=== PATIENT | female | born 1940 | race Caucasian/White ===

== ENCOUNTER 2016-02-18 03:11 | Inpatient (IN) | payer OTHER ==
[~2016-02-18] VITALS: Ht 162.6 cm; Wt 98.0 kg
[2016-02-18] VITALS (27 sets, daily range): BP systolic 113–163; BP diastolic 48–84
--- NOTE | ~2016-02-18 | PR ---
[place], [place] PROGRESS NOTE NAME: RENÉE BOO UNIT #: [id number] ROOM: [facility] DOCTOR: RUDI GA MD BIRTHDATE: [birth year] DOS: 02/24/2016 CARDIOLOGY PROGRESS NOTE SUBJECTIVE: The patient was seen at her bedside in the intensive care unit today 02/24/2016. She remains sedated and intubated on the ventilator. She appears to be comfortable. Once again, her heart rate remains about 60. She is on low dose dobutamine to support the heart rate. PHYSICAL EXAMINATION: VITAL SIGNS: Her pulse is 62 and regular, blood pressure is 126/50. She is afebrile. Pulse oximetry is 97% saturated. NECK: Supple. I saw no jugular distention. Carotids are full. LUNGS: Respirations are per ventilator. She has decreased breath sounds at the bases. HEART: Has a regular rhythm with a fourth heart sound, but no third heart sound. There is grade 2/6 systolic ejection murmur along the left sternal border, but no diastolic murmurs. ABDOMEN: Soft and normally active. EXTREMITIES: Showed trace to 1+ edema. IMPRESSIONS: 1. Acute respiratory failure superimposed on chronic respiratory insufficiency. 2. Hypertension. 3. Diastolic heart failure. 4. Pneumonia, which triggered her acute respiratory decompensation. 5. Probable severe protein calorie malnutrition. 6. Dementia. 7. Bradycardia, which is responding to low dose dobutamine. PLAN: We will continue supportive care. Hopefully, we will be able wean her off of her dobutamine when her food service hotel runner is able to wean her off the ventilator. We thank the hospitalist group for asking our advice regarding her care. [place], [place] PROGRESS NOTE NAME: RENÉE BOO UNIT #: [id number] ROOM: [facility] DOCTOR: RUDI GA MD BIRTHDATE: [birth year] RUDI GA MD CM:PNTRANS [phone] [id number] RUDI GA MD 02/24/162009 interface
--- NOTE | ~2016-02-18 | PR ---
[place], [place] PROGRESS NOTE NAME: [id number] UNIT #: [id number] ROOM: [facility] DOCTOR: RUDI GA MD BIRTHDATE: [birth year] DOS: 02/22/2016 CARDIOLOGY PROGRESS NOTE SUBJECTIVE: The patient was seen at her bedside in the Intensive Care Unit today 02/22/2016 for followup of bradycardia. HISTORY: The patient is a 75-year-old resident of the [facility]. She has a long history of chronic respiratory failure with essential hypertension, diastolic heart failure, hypothyroidism, and dementia. According to records available, she was found to be short of breath at the detention and was severely hypoxemic. She was initially placed on BiPAP but did not improve and therefore has been intubated. She is currently sedated and appears to be comfortable. She is being treated for sepsis and pneumonia. The patient did develop significant bradycardia while being sedated and on the ventilator. We were asked to comment on management strategies. I did place her on a low dose of dobutamine, and her heart rate has been adequate with that therapy. The patient remains intubated. She does appear comfortable on the ventilator. Vital signs are otherwise stable, and she is on a minimal dose of dobutamine at 1 mcg/kg/min. PHYSICAL EXAMINATION: VITAL SIGNS: Her pulse is 70 and regular with an occasional premature beat. Blood pressure is 152/62. She is afebrile. She weighs 98.0 kg. HEENT: Normocephalic, atraumatic. Extraocular muscles are intact. Sclerae are clear. Pupils are round and react to light. The oral mucosa is moist. Tongue is midline. NECK: Supple. I saw no jugular distention. Carotids are full. LUNGS: Respirations are per ventilator. She has decreased breath sounds at the bases, but her lungs are fairly clear otherwise. HEART: Has a regular rhythm with an S4 gallop, but no S3. She has a grade 2/6 systolic ejection murmur along the left sternal border radiating toward the base, but no diastolic murmurs are present. EXTREMITIES: Showed no edema. Peripheral pulses were absent. LABORATORY DATA: Hemoglobin is 9.8, hematocrit 32, white count 4700, platelet count 154,000. INR is 1.8. Sodium is 146, potassium 3.5, BUN 11, and creatinine 0.8. TSH is normal at 0.704. IMPRESSION: 1. Acute respiratory failure superimposed on chronic respiratory insufficiency. 2. History of hypertension. 3. History of chronic diastolic heart failure. 4. Pneumonia, which resulted in acute respiratory failure. 5. History of hypothyroidism, on replacement. 6. Essential hypertension. 7. Dementia. [place], [place] PROGRESS NOTE NAME: RENÉE BOO UNIT #: [id number] ROOM: [facility] DOCTOR: RUDI GA MD BIRTHDATE: [birth year] 8. Bradycardia, probably due to sedation, propofol use, etc. The patient is not on any heart rate slowing medications. PLAN: We will continue to use low doses of dobutamine as needed to support her heart rate until she can be weaned from the ventilator and breathing on her own without sedation. We thank the hospitalist physicians for asking our advice regarding her care. RUDI GA MD CM:PNTRANS [id number] RUDI GA MD 02/23/16 0922 interface
--- NOTE | ~2016-02-18 | PR ---
[place], [place] PROGRESS NOTE NAME: RENÉE BOO UNIT #: [id number] ROOM: [facility] DOCTOR: SUSAN HOUSE MD,CHICO BIRTHDATE: [birth year] DOS: 02/25/2016 SUBJECTIVE: She remains on mechanical ventilator. Sedation has been continued with IV Diprivan. The reduction of the Diprivan for the patient resulted in some improvement in wakefulness after some time. Currently, the patient is getting Diprivan at 35 mcg per kilogram per minute. She has been noted without any hemodynamic instability. Diuretic therapy for the patient has been continued with reduction of the Lasix was done yesterday because of massive diuresis which was noted in this patient. The electrolyte supplementation was continued as well. She has not been requiring any vasopressor therapy. OBJECTIVE: VITAL SIGNS: For the patient which has been recorded shows the temperature was normal, respiratory rate 12, heart rate 67, blood pressure 101/50-98/46. Intake for the patient was recorded at 2900 mL, output was 5000 mL, was negative for approximately 2000 mL. The pulse oxygen saturation on assist control mode of mechanical ventilation with 30% was 97% saturation recorded. HEENT: Examination shows head was atraumatic. Eyes nonicterus. The patient remains orally intubated. NECK: The patient noted without any acute changes. CARDIOVASCULAR: S1, S2 is audible. LUNGS: Noted without any crackles, rhonchi, or wheezing. The breath sounds noted mildly decreased bilaterally. ABDOMEN: Soft, nontender. LABORATORY DATA: CBC today, hemoglobin 9.7, hematocrit 31.2, WBC count were normal, platelet count 177,000. CMP of the patient this morning, BUN 29, creatinine 1.04, glucose 163, sodium 148, potassium was normal. AST 77, ALT 116. The chest x-ray of the patient that was done this morning was noted, the endotracheal tube was noted in appropriate position. There were no acute cardiopulmonary findings were noted. IMPRESSION: 1. The patient with resolving anasarca picture with acute congestive heart failure, diastolic dysfunction. 2. Acute respiratory failure as well. 3. The patient with mild azotemia secondary to diuretic therapy. 4. Mild hypernatremia, remains stable. Hypernatremia noted secondary to the diuretic therapy. 5. Anemia of chronic disease as well, which has been also noted stable. PLAN OF TREATMENT: Diuretic therapy will be continued at this time with the Lasix. Obtain arterial blood gas, which has not been done as of yet. Monitor chest x-ray periodically. Long-term acute care facility consultation has been ordered for this patient, which has been pending at this time for possible transfer and acceptance. Continue ventilator bundle management and nutrition support for the patient will be continued. Reduce his dose of the Diprivan to the lowest dose for the patient to keep the patient comfortable and mildly awake for this patient as well. Continue to closely monitor the mental status. Usual care, other supportive therapy, plan of management, other care, and usual [place], [place] PROGRESS NOTE NAME: RENÉE BOO UNIT #: [id number] ROOM: [facility] DOCTOR: CHICO MASSEY MD BIRTHDATE: [birth year] treatment. Supportive therapy, other plan of care. Total time pulmonary critical evaluation and management was 34 minutes. CHICO DAVIS MD CM:PNTRANS [phone] CHICO HOUSE MD 02/25/16 3231 interface
--- NOTE | ~2016-02-18 | CON ---
[place], [place] REPORT OF CONSULTATION NAME: RENÉE BOO UNIT #: [id number] ROOM: [facility] DOCTOR: RUDI GA MD BIRTHDATE: [birth year] DOS: 02/22/2016 REASON FOR CONSULTATION: Bradycardia. HISTORY OF PRESENT ILLNESS: Renée Boo is a 75-year-old resident of the [facility]. She does have a long history of chronic respiratory failure along with essential hypertension, diastolic heart failure, hypothyroidism and dementia. According to the records, she was found to be short of breath at the correction. Pulse oximetry was in the 80% range. She was placed on oxygen by nonrebreather mask and her pulse oximetry remained low at about 83%. She was initially placed on BiPAP, but did not improve and therefore was intubated. She is currently sedated and intubated and appears to be comfortable. The patient is being treated for sepsis and pneumonia. She is being sedated with propofol. She was noted on the monitor did develop significant bradycardia, which was a sinus bradycardia with PACs. She was on no rate slowing medications at that time and therefore, we were asked to assist in her management. The patient has no documented history of coronary artery disease. As noted above, she does have hypertension and diastolic heart failure. She is not known to have a conduction system disorder. In order to improve her heart rate temporarily, I did give an order for intravenous dobutamine and with 5 mcg of dobutamine per kilogram per minute, her heart rate jerad from the 30 range to the 70 range. She has been weaned to 3 mcg per kilogram per minute and her heart rate currently is in the 60s. PAST MEDICAL HISTORY: Includes: 1. Chronic obstructive lung disease with chronic hypercapnic respiratory failure. 2. Essential hypertension. 3. Diastolic congestive heart failure. 4. Dementia. 5. Hypothyroidism. 6. Ulcerative colitis. 7. History of meningioma. 8. Obsessive compulsive disorder. 9. History of seizure disorder. 10. Peripheral neuropathy. She has been intubated in the past for respiratory failure. MEDICATIONS: Prior to admission included DuoNeb q.6h. p.r.n., Pulmicort b.i.d., fluticasone nasal spray daily, acetaminophen p.r.n., Dulcolax tablets daily, chlordiazepoxide 10 mg q.i.d., vitamin D3 at 12,000 units daily, guaifenesin 600 mg b.i.d., hydrocodone with acetaminophen q.6h. p.r.n., Keppra 750 mg b.i.d., levothyroxine 175 mcg daily, loratadine 10 mg daily, Latuda 60 mg at bedtime, omeprazole 20 mg daily, polyethylene glycol p.r.n. constipation and Trintellix 20 mg tablet daily. [place], [place] REPORT OF CONSULTATION NAME: RENÉE BOO UNIT #: [id number] ROOM: [facility] DOCTOR: RUDI GA MD BIRTHDATE: [birth year] ALLERGIES: SHE LISTS ALLERGY TO IVP DYE, SULFA DRUGS, NITROFURANTOIN AND TRAMADOL. FAMILY HISTORY: Positive for heart attack in her father. Mother's history is unknown. REVIEW OF SYSTEMS: Impossible as the patient is sedated and on a ventilator. No family members are available at this time. SOCIAL HISTORY: The patient is a [facility] resident. She does not drink alcohol or use tobacco products. PHYSICAL EXAMINATION: GENERAL: The patient is an elderly white female who is sedated and breathing with the ventilator. VITAL SIGNS: Pulse is 92 and regular, blood pressure is 136/61. She is afebrile and has a weight of 98.0 kilograms with a body mass index of 37.1. HEENT: Normocephalic, atraumatic. Extraocular muscles are intact. Sclerae are clear. Pupils are round and reactive to light. The oral mucosa is moist. Tongue is midline. She is orally intubated. NECK: Her neck is supple. She has no obvious jugular distention or hepatojugular reflux. Carotids are full and I heard no bruits. She had no neck or supraclavicular masses. LUNGS: Respirations were per ventilator. She has decreased breath sounds at the bases. I heard no wheezes or rales. CARDIOVASCULAR: Her heart has a regular rhythm. She has a grade 2/6 systolic ejection murmur along the left sternal border radiating toward the base. No diastolic murmurs are present. The second heart sound is well preserved. There is no precordial heave, lift or thrill. ABDOMEN: Obese, but otherwise benign, without masses, organomegaly or rebound. EXTREMITIES: Showed edema of the arms and legs bilaterally. I could not feel peripheral pulses. LABORATORY DATA: I reviewed her electrocardiogram, which showed sinus rhythm with multiple premature atrial contractions, no acute ST or T-wave changes are seen. Hemoglobin is 9.1 with a hematocrit 30.3. There are 6000 white cells and 138,000 platelets present. Her most recent blood gas at 5:00 this morning showed a pH of 7.376, CO2 of 31.8 and a pO2 of 195 with a base excess of negative -5.7. Sodium is 150, potassium 3.3, chloride 117, CO2 of 22, BUN 14, creatinine 0.92. TSH is normal at 0.704. Troponin on admission was 0.043 and has subsequently fallen to 0.019. IMPRESSION: 1. Acute respiratory failure superimposed on chronic respiratory insufficiency. 2. History of hypertension. 3. History of chronic diastolic heart failure. 4. Pneumonia, resulting in respiratory failure. 5. History of hypothyroidism, on replacement. 6. Essential hypertension. 7. Dementia. [place], [place] REPORT OF CONSULTATION NAME: RENÉE BOO UNIT #: [id number] ROOM: [facility] DOCTOR: RUDI GA MD BIRTHDATE: [birth year] PLAN: For now, we will continue the dobutamine as needed for management of bradycardia. She is requiring only very small doses. I did review an echocardiogram that was done on 11/10/2015. It showed normal left ventricular size with mild left ventricular hypertrophy, normal regional wall motion with normal systolic function and stage II diastolic dysfunction. Aortic sclerosis without stenosis or insufficiency. Mitral annular calcification with physiologic mitral insufficiency, moderate tricuspid insufficiency with Doppler evidence for severely elevated right ventricular systolic pressures. We will continue to follow her with her other physicians and we thank the hospitalist group for asking our advice regarding her management. RUDI GA MD CM:CONSTR:REPORT OF CONSULTATION 1625 02/22/16 1348 interface
--- NOTE | ~2016-02-18 | CON ---
[place], [place] REPORT OF CONSULTATION NAME: RENÉE BOO UNIT #: [id number] ROOM: [facility] DOCTOR: CHICO MASSEY MD BIRTHDATE: [birth year] DOS: 02/23/2016 PULMONARY CRITICAL CARE EVALUATION AND MANAGEMENT CONSULTATION NOTE Consultation requested by the hospitalist services. DATE OF ASSESSMENT, CONSULTATION, AND SERVICE OF THE PATIENT: 02/23/2016 REASON FOR CONSULTATION: The patient with acute respiratory failure, failure to be weaned from the mechanical ventilator. HISTORY OF PRESENT ILLNESS: This is an elderly 75-year-old female, a resident of a [facility] for this patient brought to the hospital. The patient from [facility] brought to the hospital. The patient has been noted with progressive hypoxia. All the history of the patient has been obtained from review of the current medical record documentation since the patient is currently intubated on mechanical ventilation and not able to perform the history. Medical records were reviewed of the patient for current hospitalization previously by the physician, my own consultation, and the nursing notes. The patient was brought to the Emergency Room for the patient because of progressive hypoxia initially treated with oxygen supplementation later on the BiPAP. The patient noted with use of accessory muscles of respiration and did not respond to the BiPAP. The patient was intubated and started on mechanical ventilation and has been admitted to the hospital since 02/18/2016. The patient remains in the hospital and has been managed. She has been attempted for CPAP trial yesterday, but the patient did not tolerate. She could not be weaned off from mechanical ventilator successfully at this time. The patient remains in the intensive care unit and noted with anasarca picture with obvious assessment. She had not been reported any symptoms of excessive secretion production or rather hemoptysis. REVIEW OF SYSTEMS: Cannot be completed because of the patient's current intubation and mechanical ventilatory status. PAST MEDICAL RECORD: 1. Review for this patient was noted with the previous hospitalization. The patient under care of the hospitalist services in October 2015. I have seen the patient at that time for the Pulmonary consultation treated for acute bacterial pneumonia, congestive heart failure with pleural fluids. The patient also required fiberoptic bronchoscopies at that time. 2. Past history of congestive heart failure, diastolic dysfunction. 3. History of acute kidney injury, which has been resolved previously. 4. History of congestive heart failure with a diastolic dysfunction. 5. Chronic dementia. 6. Hypothyroidism. 7. Ulcerative colitis. 8. History of meningoma of the brain. 9. History of mitral valve prolapse. 10. History of moderate protein calorie malnutrition support. 11. Obsessive compulsive disorder. [place], [place] REPORT OF CONSULTATION NAME: RENÉE BOO UNIT #: [id number] ROOM: [facility] DOCTOR: SUSAN HOUSE MD,[facility] BIRTHDATE: [birth year] 12. History of allergic rhinitis. 13. Seizure disorder. 14. Peripheral neuropathy, etiology, undefined. 15. Vitamin D deficiency. PAST SURGICAL HISTORY: 1. Noted intubation on mechanical ventilation 2010. 2. Fiberoptic bronchoscopy with last bronchoscopy done October 2015. 3. Colostomy. The patient with history of ulcerative colitis, longstanding. 4. Subtotal thyroidectomy. SOCIAL HISTORY: The patient , resident of [facility]. She has used the tobacco products in the past, but details were unknown. There was no history of alcohol or illicit drug use. She does have one son. FAMILY HISTORY: The patient was reported for myocardial infarction. MEDICATIONS: Current administered medications were noted as use of Trintellix, Latuda, IV Solu-Medrol, which has been given as 60 mg b.i.d., Keppra, DuoNeb, dobutamine, Coumadin, Synthroid, Protonix, Levaquin, vancomycin, IV Zosyn, Synthroid previously and other p.r.n. medications administration. DRUG ALLERGIES: Noted allergy, 1. IVP DYE. 2. SULFA DRUGS. 3. MACRODANTIN. 4. TRAMADOL. PHYSICAL EXAMINATION: GENERAL: A 75-year-old female who has been currently noted intubated on mechanical ventilator without any distress. Height of 5 feet 4 inches, weight of 240 pounds. VITAL SIGNS: For the patient, which has been recorded showed the temperature of the patient noted as normal, respiratory rate 12-16, heart rate 61-54, blood pressure 122/48-136/53. The intake for the patient noted as 3800 mL, output 1600 mL. The fluid balance and assessment for the patient, which was completed for the last 72 hours for the patient was noted. The patient remains in positive fluid balance in the last 3 days from 2.7 liters to 2.3 liters in the last 72 hours as well. The pulse oxygen saturation for the patient was recorded for this patient at the present time with the saturation of 99% on 30% oxygen. HEENT: Examination of the patient orally intubated. Orogastric tube is in place. NECK: Supple. Head was atraumatic. Eyes nonicterus. CARDIOVASCULAR SYSTEM: S1, S2 audible. LUNGS: Shows moderate reduced breath sounds noted in the lungs bilaterally without any wheezing or crackles at the present time. ABDOMEN: Noted with obesity with colostomy. EXTREMITIES: The patient noted anasarca picture. SKIN: Shows scattered area of ecchymosis of this patient as well. MUSCULOSKELETAL SYMPTOMS: No deformities. [place], [place] REPORT OF CONSULTATION NAME: REÉNE BOO UNIT #: [id number] ROOM: [facility] DOCTOR[facility] [birth year] CENTRAL NERVOUS SYSTEM: For the patient could not be defined. LABORATORY DATA: CBC on 02/18/2016 for the patient, hemoglobin 10.2, hematocrit 35.4, WBC count normal, platelet count was normal. Lactic acid 0.5, 02/18/2016. 02/18/2016 for this patient, PT/INR was 2.6, which is therapeutic. CMP of the patient 02/18/2016 on admission, BUN was normal, creatinine was normal, sodium 148. Albumin 2.9. ProBNP for this patient noted 3428 for this patient on 02/18/2016 as well. Arterial blood gas pH of 7.23, pCO2 of 66, pO2 64 on 45% oxygen. Assist control mode of mechanical ventilation. The endotracheal aspirate culture for this patient noted normal caterina for this patient with 2 cultures. The INR of the patient February 19 was 1.8. Blood cultures, no bacterial growth, final results for the patient on 02/18/2016. CBC this morning, hemoglobin of 9.7, hematocrit 31.1, WBC count normal, platelet count were normal. BMP this morning, BUN 15, creatinine was normal, glucose 250 with potassium 3.2. The PT/INR for the patient today was noted as 2.4, which remains therapeutic. Arterial blood gas this morning, 30% oxygen, pH of 7.36, pCO2 35, pO2 120. RADIOLOGY DATA: Review for this patient was personally performed. The chest x-ray of the patient, which was done for the patient on 02/18/2016 was noted with left lower lobe area of small atelectasis, mild pulmonary venous congestion. Endotracheal tube is in place. CT scan of the chest for the patient of 02/18/2016 for the patient was reviewed for this patient shows small nodular opacity was noted in the right upper lobe for this patient. There was evidence of a significant pleural fluid. No additional infiltration was noted. The chest x-ray of the patient that was done for the patient on 02/22/2016 shows endotracheal tube was noted about 5 cm above the niranjan level. The chest x-ray of the patient that was done for this patient this morning was reviewed personally as well. The report from the radiologist was not available. Endotracheal tube was noted in similar position, which is related to high riding with some pulmonary venous congestion marking without any gross pulmonary infiltration. IMPRESSION: 1. The patient who has been currently admitted to the hospital noted with anasarca with acute hypoxic respiratory failure for this patient's inability to be weaned off successfully from mechanical ventilator. 2. Evidence of a possibility of severe protein calorie malnutrition would be considered as well. 3. Hypokalemia for this patient was also noted. 4. History of congestive heart failure with a diastolic dysfunction. 5. Possibility of pneumonia in the right upper lung, cannot be completely excluded Versus area of atelectasis for this patient, which is for this patient secondary to mucus impaction. 6. Therapeutic anticoagulation as well with history of bilateral lower extremity deep venous thrombosis, previously as well. PLAN OF TREATMENT: The patient has been started on intravenous diuretic for this patient with supplementation of potassium. Repeat another chest x-ray in the morning. Continue anticoagulation. Once the adequate diuresis achieved for [place], [place] REPORT OF CONSULTATION NAME: RENÉE BOO UNIT #: [id number] ROOM: [facility] DOCTOR: SUSAN HOUSE MD,[facility] BIRTHDATE: [birth year] this patient, she will be planned for a trial of possible liberation of mechanical ventilation with the use of CPAP in the next 24-48 hours. In the meantime, continue the current medical management. Based on the culture results, the patient will reduce the antibiotic spectrum for this patient as well. Sedation to be continued. The patient to maintain saturation 90% greater. Also, I will reduce the Solu-Medrol from 60 mg to 30 mg b.i.d. dosing. Consider bronchoscopy if the patient continued to show failure or wean attempt. Monitoring all fluid intake. Also orders for the patient were prealbumin level to be done in the morning for accurate assessment of the protein calorie malnutrition status. Optimize the feeding. The feeding will be continued from the PEG tube. Other supportive therapy, plan of management to be continued as well. Usual care. Supportive medical management. Ventilator bundle management would be continued. Total time for pulmonary critical care evaluation and management was 40 minutes. CHICO DAVIS MD CM:CONSTR:REPORT OF CONSULTATION [id number] 02/24/16 0210 interface
--- NOTE | ~2016-02-18 | PR ---
[place], [place] PROGRESS NOTE NAME: RENÉE BOO UNIT #: [id number] ROOM: [facility] DOCTOR: RUDI GA MD BIRTHDATE: [birth year] DOS: 02/23/2016 CARDIOLOGY PROGRESS NOTE SUBJECTIVE: The patient was seen at her bedside in the intensive care unit today, 02/23/2016. She remains intubated and sedated. She is breathing comfortable on the ventilator. Her heart rate remains right around 60, and she continues to be on low dose dobutamine to support her heart rate. PHYSICAL EXAMINATION: VITAL SIGNS: Today, her pulse is 60 and regular. Blood pressure is 128/44. She is afebrile She weighs 98.0 kilograms with a body mass index of 37.1. HEENT: Normocephalic, atraumatic. Extraocular muscles are intact. Sclerae are clear. Pupils are equal, round and reactive to light. Oral mucosa is moist. Tongue is midline. NECK: Supple. She has no jugular distention. Carotids are full. LUNGS: Respirations are per ventilator, but seem unlabored. She has decreased breath sounds at the bases. HEART: Her heart has a regular rhythm with a fourth heart sound, but no third heart sound. ABDOMEN: Her abdomen is soft and normally active. EXTREMITIES: Do show anasarca. She does seem to have a lot of third space fluid. LABORATORY DATA: Hemoglobin is 9.7, white count 5300, platelet count 161,000. Sodium 145, potassium 3.2, BUN 15, creatinine 0.8. IMPRESSION: 1. Acute respiratory failure superimposed on chronic respiratory insufficiency. 2. History of hypertension. 3. Chronic diastolic heart failure. 4. Pneumonia, which caused her acute respiratory decompensation. 5. History of hypothyroidism, on replacement with normal TSH of 0.704 on 02/19/2016. 6. Dementia. 7. Bradycardia, responding to low dose dobutamine. PLAN: The patient is being managed for her respiratory insufficiency by the primary physicians. I think that when we are able to wean her from her sedation, that her heart rate will improve. For now, we will continue her current management. We thank the hospitalist group for asking our advice regarding her care. [place], [place] PROGRESS NOTE NAME: RENÉE BOO UNIT #: [id number] ROOM: [facility] DOCTOR: SURY LANDAVERDE,RUDI BIRTHDATE: [birth year] RUDI GA MD CM:PNTRANS [id number] RUDI GA MD 02/23/16 2240 interface
--- NOTE | ~2016-02-18 | PR ---
[place], [place] PROGRESS NOTE NAME: RENÉE BOO UNIT #: [id number] ROOM: [facility] DOCTOR: SUSAN HOUSE MD,[facility]ICO BIRTHDATE: [birth year] DOS: 02/24/2016 PULMONARY CRITICAL CARE EVALUATION AND MANAGEMENT SUBJECTIVE: She remains on mechanical ventilator. The patient has been sedated. She was continued on the diuretic therapy, was noted with significant diuresis in the past 24 hours. She has not been noted with any acute hemodynamic instability at this time. She has been continued for this patient with the NG tube, which seems to be feeding well continued for the patient, which seems to be well tolerated by the patient without any difficulty or increased residuals. OBJECTIVE: VITAL SIGNS: For the patient which had been recorded showed the temperature noted normal, respiratory rate 12-16, heart rate 68-62, blood pressure of 126/50-105/52. Intake for the patient is approximately 2500 mL, the output was noted a total of 7400 mL with a negative fluid balance of approximately 5 L. Her pulse oxygen saturation on 30% was noted 97% saturation. HEENT: The patient remained orally intubated. NECK: Supple. HEAD: Atraumatic. CARDIOVASCULAR: S1 and S2 audible. LUNGS: Noted without any wheeze or crackles at the present time. ABDOMEN: Noted soft. EXTREMITIES: Showed reduction in edema; however, 2+ pitting edema still noted in upper and lower extremities. There is finding of anasarca. LABORATORY DATA: CBC of the patient this morning, WBC count 5.5, hemoglobin 10.5, hematocrit 33.6, platelet count 175,000. PT/INR therapeutic 2.9. The CMP of the patient of this morning for the patient noted as the glucose of 205, BUN 22, creatinine was normal, sodium 149, AST of 69, ALT of 95. Prealbumin is 20. The chest x-ray of the patient that was done this morning was personally reviewed as well shows improvement in the congestive heart failure finding and the fluid overload. IMPRESSION: 1. The patient who has been currently treated for acute congestive heart failure with a diastolic dysfunction with acute on chronic hypoxic respiratory failure. 2. Anasarca of this patient with moderate protein-calorie malnutrition as well. 3. Mild hypernatremia secondary to diuretic therapy. 4. for the patient and other previous known medical problems. 5. Anemia of chronic disease as well. PLAN OF TREATMENT: Diuretic therapy of the patient will be changed to Lasix 40 mg daily. Continue potassium supplements. She has been maintaining good amount of potassium. Continue maximum nutrition support. Long-term acute care facility consultation has been ordered for the patient's nursing home management and the patient will be on the mechanical ventilator for the next few days. [place], [place] PROGRESS NOTE NAME: RENÉE BOO UNIT #: [id number] ROOM: [facility] DOCTOR: SUSAN HOUSE MD,[facility] BIRTHDATE: [birth year] Other supportive therapy, plan of management to be continued. Usual care. Ventilator bundle management will be continued as in progress. All other supportive medical management. Consider discontinuation of the antibiotics. Total time of pulmonary critical care evaluation and management was 35 minutes. CHICO ADVIS MD CM:PNTRANS [id number] CHICO HOUSE MD 04/01/16 1152 interface
[~2016-02-18 03:11] MED LIST: AMINOPHYLLIN200 MG PO; AMOXICILLIN500 MG PO; ARTIFICIAL TEAR15 M1 OPH; BENZTROPINE1 MG PO; BRIN20TA PO; CEFTRIAXONE1 GM IM; CIPRO500 MG PO; CLARITIN10 MG PEG; CLONAZEPAM0.5 M1; CLONIDINE HCL0.1 MG; CLONIDINE0.1 MG; CLONIDINE0.1 MG PO; COGENTIN1 MG PO; COUMADIN2 M1 PO; COUMADIN3 M1 PO; COUMADIN3 MG PO; COUMADIN4 M1 PO; COUMADIN4 M2 PO; COUMADIN4 MG PO; DESYREL100 MG; DESYREL100 MG PO; DILANTIN100 MG PO; DULCOLAX5 M1 PO; DUONEB 3 MG/3 ML3 M1 INH; DUONEB 3ML 3 MG/3 ML INH; Duoneb 3ML 3 MG/3 ML INH; ELIQUIS5 M1 PO; FLONASE ALLERG9.9 ML NAS; FLUVOXAMINE100 MG; FLUVOXAMINE50 MG; GUAIFENESIN600 MG PO; HALDOL1 MG PO; HALOPERIDOL1 MG; HYDROCODONE BIT1 T11 PEG; INDERAL20 MG PO; IPRATROPIUM 2.2.5 ML; JANTOVEN2 MG PO; JANTOVEN3 MG PO; JANTOVEN4 MG PO; K-DUR20 MEQ PO; KEPPRA500 MG PO; KEPPRA750 MG PO; KLONOPIN0.5 MG; KLONOPIN1 MG PO; KLOR-CON 1010 ME1 PO; LASIX20 MG PO; LATU20TA PO; LATU40TA PO; LATU40TA1 PO; LATU60TA PO; LATUDA20 MG; LATUDA60 M1 PO; LEVAQUIN750 M1 PO; LEVOTHYROXINE0.2 MG PO; LIBRIUM10 MG; LIBRIUM10 MG PO; LIBRIUM5 MG PO; LUVOX CR150 MG PO; LUVOX100 MG PO; LUVOX50 MG PO; MEDROL DOSEPAK4 MG PO; MINOCYCLINE HC100 M1 PO; MIRALAX17 GM/DOSE PO; NASONEX0.05 MG/AC; NASONEX0.05 MG/AC NAS; NASONEX0.05 MG/AC NS; NEUTRA-PHOS1 PDR PO; NORCO 325 MG-51 TAB PO; NORCO 5-325 TA1 EACH PO; NUED1CAP PO; NYSTATIN100000 U/G T; OMEPRAZOLE20 M2 PO; PERCOCET 325 MG1 TA7 PO; PHOS-NAK1 PDR PO; POLYSPORIN 5001 OI1 TP; POLYSPORIN OINT15 GM; POTASSIUM CHLO20 MEQ PO; PREDNISONE5 MG PO; PROTONIX40 MG PO; PULMICORT RESP0.5 M1 INH; RISPERDAL0.25 MG PO; RISPERDAL0.5 MG PO; RISPERIDONE M-0.5 MG PO; ROCEPHIN1 GM/50 M1 IM; SALINE MIST 4444 ML NAS; SALINE MIST 4545 ML NAS; SEA SOFT MIST 445 ML NAS; SEROQUEL100 MG PO; SEROQUEL50 MG PO; SOLU-MEDROL IM; SYNTHROID,LEV175 MCG PO; SYNTHROID0.175 MG PO; Synthroid,Lev200 MCG PO; TRAZADONE HYDR100 MG; TRAZADONE HYDR100 MG PO; TRAZODONE50 MG PO; TRILEPTAL300 MG PO; TRINTELLIX20 MG PEG; TYLENOL325 M1 PEG; VICODIN 5/500 505 M1 PO; VICODIN 5/500 505 MG; VICODIN 5/500 505 MG PO; VICODIN 500 MG-1 TAB PO; VISTARIL50 MG PO; VITAMIN D10000 UNIT PEG; VITAMIN D32000 I1 PO; VITAMIN D32000 IU PO; VITAMIN D400 IU; XANAX0.25 MG; XANAX0.25 MG PO; ZESTRIL2.5 MG PO; ZOVIRAX800 MG PO
[2016-02-18] MEDS ORDERED: CHLORDIAZEPOXID10 M2 PEG (03:38)
[2016-02-18 03:41] LABS: BASO % 0.5 % (0.0-1.0); EOS # 0.2 10*3/uL (0.0-0.4); EOS % 2.4 % (1.0-4.0); HEMATOCRIT 35.4 % (37.0-47.0); HEMOGLOBIN 10.2 g/dl (12.0-16.0); LYMPH # 0.4 10*3/uL (1.3-4.4); LYMPH % 7.1 % (27.0-41.0); MEAN CELL VOLUME 87.8 fl (81.0-99.0); MEAN CORPUSCULAR HGB 25.3 pg (27.0-31.0); MEAN CORPUSCULAR HGB CONC 28.8 g/dl (33.0-37.0); MEAN PLATELET VOLUME 12.1 fl (9.6-12.3); MONO # 0.9 10*3/uL (0.1-1.0); MONO % 15.1 % (3.0-9.0); NEUT # 4.7 10*3/uL (2.3-7.9); NEUT % 74.7 % (47.0-73.0); PLATELET COUNT AUTOMATED 197 10*3/uL (130-400); RED BLOOD COUNT 4.03 10*6/uL (4.10-5.10); RED CELL DISTRI WIDTH 17.7 % (0-14.5); WHITE BLOOD COUNT 6.2 10*3/uL (4.8-10.8)
[2016-02-18 03:50] LABS: INTERNATIONAL NORM RATIO 2.6 (2.0-3.5); PROTHROMBIN TIME 28.8 SECONDS (9.0-12.4)
[2016-02-18 03:58] LABS: ALBUMIN 2.9 gm/dl (3.1-4.5); ALKALINE PHOSPHATASE 91 U/L (45-117); BILIRUBIN, TOTAL 0.2 mg/dl (0.2-1.0); BUN 18 mg/dl (7-24); CARBON DIOXIDE 28 mmol/L (21-32); CHLORIDE 114 mmol/L (98-107); EST GLOM FILT AFRICAN AMERICAN > 60 ml/min; GLUCOSE 126 mg/dL (65-99); POTASSIUM 4.6 mmol/L (3.5-5.1); SGOT/AST 19 IU/L (3-35); SGPT/ALT 36 U/L (12-78); SODIUM 148 mmol/L (136-145); TOTAL PROTEIN 6.7 gm/dL (6.4-8.2)
[2016-02-18 04:36] LABS: BILIRUBIN NEGATIVE (NEGATIVE); BLOOD TRACE-INTACT (NEGATIVE); CLARITY SL CLOUDY (CLEAR); COLOR YELLOW (YELLOW); GLUCOSE NEGATIVE (NEGATIVE); KETONE NEGATIVE (NEGATIVE); LEUKO ESTERASE 3+ (NEGATIVE); NITRITE POSITIVE (NEGATIVE); PH 5.5 (5.0-9.0); PROTEIN TRACE (NEGATIVE); SPECIFIC GRAVITY 1.025 (1.005-1.030); UROBILINOGEN 0.2 E.U./dl (0.2-1.0)
[2016-02-18 04:51] LABS: BACTERIA 3+
[2016-02-18 04:52] LABS: URINE REFLEX COMMENT YES (NO); WBC TNTC wbc/hpf (0-5)
[2016-02-18 05:09] LABS: ABG BASE EXCESS -0.6 mmol/L (-2.0-2.0); ABG CO2 CONTENT 29.7 mmol/L (23-27); ABG HCO3 27.6 mmol/l (22-26); ARTERIAL BLOOD GAS PH 7.238 (7.35-7.45); ARTERIAL BLOOD GAS PO2 64.4 mmHg (80-90)
[2016-02-18 07:54] LABS: ABG BASE EXCESS 0.6 mmol/L (-2.0-2.0); ABG HCO3 24.7 mmol/l (22-26); ABG TEMPERATURE 98.8 F (98.0-99.0); ARTERIAL BLOOD GAS PH 7.408 (7.35-7.45)
[2016-02-18 12:58] LABS: CKMB 0.8 ng/ml (0.5-3.6)
[2016-02-18 18:28] LABS: CKMB 0.8 ng/ml (0.5-3.6)
[2016-02-19] VITALS (12 sets, daily range): BP systolic 108–130; BP diastolic 45–55
[2016-02-19 00:52] LABS: CKMB 0.6 ng/ml (0.5-3.6)
[2016-02-19 05:18] LABS: ABG BASE EXCESS -0.4 mmol/L (-2.0-2.0); ABG CO2 CONTENT 25.2 mmol/L (23-27); ABG TEMPERATURE 100.9 F (98.0-99.0); ARTERIAL BLOOD GAS PH 7.371 (7.35-7.45); ARTERIAL BLOOD GAS PO2 90.9 mmHg (80-90)
[2016-02-19 06:10] LABS: BASO % 0.4 % (0.0-1.0); EOS # 0.2 10*3/uL (0.0-0.4); EOS % 2.6 % (1.0-4.0); HEMATOCRIT 32.1 % (37.0-47.0); HEMOGLOBIN 9.3 g/dl (12.0-16.0); LYMPH # 0.4 10*3/uL (1.3-4.4); LYMPH % 5.8 % (27.0-41.0); MEAN CELL VOLUME 85.6 fl (81.0-99.0); MEAN CORPUSCULAR HGB 24.8 pg (27.0-31.0); MEAN PLATELET VOLUME 11.7 fl (9.6-12.3); MONO # 0.6 10*3/uL (0.1-1.0); MONO % 8.6 % (3.0-9.0); NEUT # 6.1 10*3/uL (2.3-7.9); NEUT % 82.2 % (47.0-73.0); PLATELET COUNT AUTOMATED 148 10*3/uL (130-400); RED BLOOD COUNT 3.75 10*6/uL (4.10-5.10); RED CELL DISTRI WIDTH 18.1 % (0-14.5); WHITE BLOOD COUNT 7.4 10*3/uL (4.8-10.8)
[2016-02-19 06:25] LABS: ALBUMIN 2.5 gm/dl (3.1-4.5); POTASSIUM 3.6 mmol/L (3.5-5.1); TOTAL PROTEIN 6.1 gm/dL (6.4-8.2)
[2016-02-19 06:27] LABS: HEMOGLOBIN A1c 5.7 % (4.8-5.6)
[2016-02-19 06:35] LABS: FREE T4 1.93 ng/dl (0.76-1.46); MAGNESIUM 1.6 mg/dL (1.5-2.1); THYROID STIM HORMONE (HS) 0.704 uIU/ml (0.358-4.75)
[2016-02-19 06:46] LABS: PROTHROMBIN TIME 32.6 SECONDS (9.0-12.4)
[2016-02-19 06:48] LABS: FOLIC ACID 9.31 ng/mL (>5.38)
[2016-02-20] VITALS (12 sets, daily range): BP systolic 98–126; BP diastolic 41–78
[2016-02-20 05:09] LABS: ABG BASE EXCESS -3.1 mmol/L (-2.0-2.0); ABG HCO3 20.9 mmol/l (22-26); ARTERIAL BLOOD GAS PH 7.386 (7.35-7.45); ARTERIAL BLOOD GAS PO2 93.3 mmHg (80-90)
[2016-02-20 05:10] LABS: ABG TEMPERATURE 99.4 F (98.0-99.0)
[2016-02-20 06:03] LABS: BASO % 0.3 % (0.0-1.0); EOS # 0.2 10*3/uL (0.0-0.4); EOS % 2.9 % (1.0-4.0); HEMATOCRIT 30.4 % (37.0-47.0); HEMOGLOBIN 9.2 g/dl (12.0-16.0); LYMPH # 0.6 10*3/uL (1.3-4.4); LYMPH % 9.3 % (27.0-41.0); MEAN CELL VOLUME 84.2 fl (81.0-99.0); MEAN CORPUSCULAR HGB 25.5 pg (27.0-31.0); MEAN CORPUSCULAR HGB CONC 30.3 g/dl (33.0-37.0); MEAN PLATELET VOLUME 10.9 fl (9.6-12.3); MONO # 0.8 10*3/uL (0.1-1.0); MONO % 12.2 % (3.0-9.0); NEUT # 4.6 10*3/uL (2.3-7.9); NEUT % 74.8 % (47.0-73.0); PLATELET COUNT AUTOMATED 149 10*3/uL (130-400); RED BLOOD COUNT 3.61 10*6/uL (4.10-5.10); RED CELL DISTRI WIDTH 18.2 % (0-14.5); WHITE BLOOD COUNT 6.2 10*3/uL (4.8-10.8)
[2016-02-20 06:40] LABS: MAGNESIUM 1.8 mg/dL (1.5-2.1)
[2016-02-20 06:43] LABS: ALBUMIN 2.2 gm/dl (3.1-4.5); ALKALINE PHOSPHATASE 88 U/L (45-117); BILIRUBIN, TOTAL 0.7 mg/dl (0.2-1.0); BUN 15 mg/dl (7-24); CARBON DIOXIDE 24 mmol/L (21-32); CHLORIDE 118 mmol/L (98-107); EST GLOM FILT AFRICAN AMERICAN > 60 ml/min; GLUCOSE 86 mg/dL (65-99); SGOT/AST 25 IU/L (3-35); SGPT/ALT 28 U/L (12-78); SODIUM 150 mmol/L (136-145); TOTAL PROTEIN 5.5 gm/dL (6.4-8.2)
[2016-02-20 06:50] LABS: INTERNATIONAL NORM RATIO 1.8 (2.0-3.5); PROTHROMBIN TIME 19.7 SECONDS (9.0-12.4)
[2016-02-21] VITALS (13 sets, daily range): BP systolic 104–153; BP diastolic 38–79
[2016-02-21 05:43] LABS: ABG CO2 CONTENT 19.4 mmol/L (23-27); ABG HCO3 18.4 mmol/l (22-26); ARTERIAL BLOOD GAS PH 7.376 (7.35-7.45)
[2016-02-21 05:44] LABS: ABG BASE EXCESS -5.7 mmol/L (-2.0-2.0)
[2016-02-21 06:04] LABS: BUN 14 mg/dl (7-24); CARBON DIOXIDE 22 mmol/L (21-32); CHLORIDE 117 mmol/L (98-107); EST GLOM FILT AFRICAN AMERICAN > 60 ml/min; GLUCOSE 72 mg/dL (65-99); POTASSIUM 3.3 mmol/L (3.5-5.1); SODIUM 150 mmol/L (136-145)
[2016-02-21 06:08] LABS: BASO % 0.2 % (0.0-1.0); EOS # 0.2 10*3/uL (0.0-0.4); EOS % 3.8 % (1.0-4.0); HEMATOCRIT 30.3 % (37.0-47.0); HEMOGLOBIN 9.1 g/dl (12.0-16.0); LYMPH # 0.8 10*3/uL (1.3-4.4); MEAN CELL VOLUME 84.2 fl (81.0-99.0); MEAN CORPUSCULAR HGB 25.3 pg (27.0-31.0); MEAN PLATELET VOLUME 12.5 fl (9.6-12.3); MONO # 0.8 10*3/uL (0.1-1.0); MONO % 13.1 % (3.0-9.0); NEUT # 4.2 10*3/uL (2.3-7.9); NEUT % 69.2 % (47.0-73.0); PLATELET COUNT AUTOMATED 138 10*3/uL (130-400); RED CELL DISTRI WIDTH 18.4 % (0-14.5)
[2016-02-21 06:27] LABS: INTERNATIONAL NORM RATIO 1.4 (2.0-3.5); PROTHROMBIN TIME 15.2 SECONDS (9.0-12.4)
[2016-02-22] VITALS (13 sets, daily range): BP systolic 141–165; BP diastolic 49–73
[2016-02-22 05:02] LABS: ABG BASE EXCESS -6.8 mmol/L (-2.0-2.0); ABG CO2 CONTENT 18.5 mmol/L (23-27); ABG HCO3 17.5 mmol/l (22-26); ABG TEMPERATURE 97.1 F (98.0-99.0); ARTERIAL BLOOD GAS PH 7.358 (7.35-7.45)
[2016-02-22 06:16] LABS: HEMOGLOBIN 9.8 g/dl (12.0-16.0); LYMPH # 0.5 10*3/uL (1.3-4.4); LYMPH % 10.9 % (27.0-41.0); MEAN CELL VOLUME 81.6 fl (81.0-99.0); MEAN CORPUSCULAR HGB CONC 30.6 g/dl (33.0-37.0); MEAN PLATELET VOLUME 11.2 fl (9.6-12.3); MONO # 0.2 10*3/uL (0.1-1.0); MONO % 4.1 % (3.0-9.0); NEUT % 84.4 % (47.0-73.0); PLATELET COUNT AUTOMATED 154 10*3/uL (130-400); RED BLOOD COUNT 3.92 10*6/uL (4.10-5.10); RED CELL DISTRI WIDTH 18.3 % (0-14.5); WHITE BLOOD COUNT 4.7 10*3/uL (4.8-10.8)
[2016-02-22 06:54] LABS: BUN 11 mg/dl (7-24); CARBON DIOXIDE 19 mmol/L (21-32); CHLORIDE 115 mmol/L (98-107); EST GLOM FILT AFRICAN AMERICAN > 60 ml/min; GLUCOSE 159 mg/dL (65-99); POTASSIUM 3.5 mmol/L (3.5-5.1); SODIUM 146 mmol/L (136-145)
[2016-02-22 06:58] LABS: INTERNATIONAL NORM RATIO 1.8 (2.0-3.5); PROTHROMBIN TIME 19.9 SECONDS (9.0-12.4)
[2016-02-23] VITALS (13 sets, daily range): BP systolic 122–156; BP diastolic 44–71
[2016-02-23 04:51] LABS: ABG BASE EXCESS -4.4 mmol/L (-2.0-2.0); ABG CO2 CONTENT 21.2 mmol/L (23-27); ABG HCO3 20.1 mmol/l (22-26); ABG TEMPERATURE 97.5 F (98.0-99.0); ARTERIAL BLOOD GAS PH 7.367 (7.35-7.45)
[2016-02-23 06:19] LABS: HEMATOCRIT 31.1 % (37.0-47.0); HEMOGLOBIN 9.7 g/dl (12.0-16.0); MEAN CELL VOLUME 80.8 fl (81.0-99.0); MEAN CORPUSCULAR HGB 25.2 pg (27.0-31.0); MEAN CORPUSCULAR HGB CONC 31.2 g/dl (33.0-37.0); NUCLEATED RED BLOOD CELL 0.4 % (0.0-0.0); PLATELET COUNT AUTOMATED 161 10*3/uL (130-400); RED BLOOD COUNT 3.85 10*6/uL (4.10-5.10); RED CELL DISTRI WIDTH 18.3 % (0-14.5); WHITE BLOOD COUNT 5.3 10*3/uL (4.8-10.8)
[2016-02-23 06:28] LABS: INTERNATIONAL NORM RATIO 2.4 (2.0-3.5); PROTHROMBIN TIME 26.1 SECONDS (9.0-12.4)
[2016-02-23 06:32] LABS: BUN 15 mg/dl (7-24); CARBON DIOXIDE 21 mmol/L (21-32); CHLORIDE 111 mmol/L (98-107); EST GLOM FILT AFRICAN AMERICAN > 60 ml/min; GLUCOSE 250 mg/dL (65-99); POTASSIUM 3.2 mmol/L (3.5-5.1); SODIUM 145 mmol/L (136-145); TRIGLYCERIDES 104 mg/dl (<150)
[2016-02-23 07:06] LABS: LYMPHOCYTE # 0.4 10*3/uL (1.3-4.4); MONOCYTE # 0.2 10*3/uL (0.1-1.0); NEUTROPHIL # 4.7 10*3/uL (2.3-7.9); NEUTROPHILS 89 % (47-73); TOTAL CELLS COUNTED 100 #CELLS
[2016-02-23 07:07] LABS: PLATELET SUFFICIENCY NORMAL (NORMAL); POLYCHROMASIA SLIGHT; SCHISTOCYTES FEW
[2016-02-23 18:34] LABS: BUN 19 mg/dl (7-24); CARBON DIOXIDE 25 mmol/L (21-32); CHLORIDE 112 mmol/L (98-107); EST GLOM FILT AFRICAN AMERICAN > 60 ml/min; GLUCOSE 232 mg/dL (65-99); SODIUM 148 mmol/L (136-145)
[2016-02-23 18:37] LABS: POTASSIUM 4.2 mmol/L (3.5-5.1)
[2016-02-24] VITALS (12 sets, daily range): BP systolic 97–135; BP diastolic 37–57
[2016-02-24 05:45] LABS: ALBUMIN 2.2 gm/dl (3.1-4.5); ALKALINE PHOSPHATASE 85 U/L (45-117); BILIRUBIN, TOTAL 0.4 mg/dl (0.2-1.0); BUN 22 mg/dl (7-24); CARBON DIOXIDE 24 mmol/L (21-32); CHLORIDE 113 mmol/L (98-107); EST GLOM FILT AFRICAN AMERICAN > 60 ml/min; GLUCOSE 205 mg/dL (65-99); POTASSIUM 3.6 mmol/L (3.5-5.1); SGOT/AST 69 IU/L (3-35); SGPT/ALT 95 U/L (12-78); SODIUM 149 mmol/L (136-145); TOTAL PROTEIN 5.8 gm/dL (6.4-8.2)
[2016-02-24 06:12] LABS: HEMATOCRIT 33.6 % (37.0-47.0); HEMOGLOBIN 10.5 g/dl (12.0-16.0); IG # 0.1 10*3/uL (0.0-0.1); LYMPH # 0.6 10*3/uL (1.3-4.4); MEAN CELL VOLUME 79.2 fl (81.0-99.0); MEAN CORPUSCULAR HGB 24.8 pg (27.0-31.0); MEAN CORPUSCULAR HGB CONC 31.3 g/dl (33.0-37.0); MEAN PLATELET VOLUME 11.5 fl (9.6-12.3); MONO # 0.6 10*3/uL (0.1-1.0); MONO % 11.2 % (3.0-9.0); NEUT # 4.2 10*3/uL (2.3-7.9); NEUT % 76.2 % (47.0-73.0); PLATELET COUNT AUTOMATED 175 10*3/uL (130-400); RED BLOOD COUNT 4.24 10*6/uL (4.10-5.10); RED CELL DISTRI WIDTH 18.2 % (0-14.5); WHITE BLOOD COUNT 5.5 10*3/uL (4.8-10.8)
[2016-02-24 06:33] LABS: INTERNATIONAL NORM RATIO 2.9 (2.0-3.5); PROTHROMBIN TIME 31.4 SECONDS (9.0-12.4)
[2016-02-25] VITALS (8 sets, daily range): BP systolic 94–124; BP diastolic 44–66
[2016-02-25 05:46] LABS: ALBUMIN 2.2 gm/dl (3.1-4.5); ALKALINE PHOSPHATASE 76 U/L (45-117); BILIRUBIN, TOTAL 0.3 mg/dl (0.2-1.0); BUN 29 mg/dl (7-24); CARBON DIOXIDE 29 mmol/L (21-32); CHLORIDE 108 mmol/L (98-107); EST GLOM FILT AFRICAN AMERICAN > 60 ml/min; GLUCOSE 163 mg/dL (65-99); POTASSIUM 4.3 mmol/L (3.5-5.1); SGOT/AST 77 IU/L (3-35); SGPT/ALT 116 U/L (12-78); SODIUM 148 mmol/L (136-145); TOTAL PROTEIN 5.6 gm/dL (6.4-8.2)
[2016-02-25 06:04] LABS: BASO % 0.2 % (0.0-1.0); EOS % 0.4 % (1.0-4.0); HEMATOCRIT 31.2 % (37.0-47.0); HEMOGLOBIN 9.7 g/dl (12.0-16.0); IG # 0.2 10*3/uL (0.0-0.1); LYMPH # 0.7 10*3/uL (1.3-4.4); LYMPH % 12.3 % (27.0-41.0); MEAN CELL VOLUME 79.4 fl (81.0-99.0); MEAN CORPUSCULAR HGB 24.7 pg (27.0-31.0); MEAN CORPUSCULAR HGB CONC 31.1 g/dl (33.0-37.0); MEAN PLATELET VOLUME 11.3 fl (9.6-12.3); MONO # 0.6 10*3/uL (0.1-1.0); MONO % 10.3 % (3.0-9.0); NEUT # 4.1 10*3/uL (2.3-7.9); NEUT % 74.1 % (47.0-73.0); PLATELET COUNT AUTOMATED 177 10*3/uL (130-400); RED BLOOD COUNT 3.93 10*6/uL (4.10-5.10); RED CELL DISTRI WIDTH 18.5 % (0-14.5); WHITE BLOOD COUNT 5.6 10*3/uL (4.8-10.8)
[2016-02-25] MEDS ORDERED: COUMADIN4 M2 PO (13:41)
[2016-02-25] MEDS ORDERED: LEVOFLOXAC750 MG/150 IV (13:41)
[2016-02-25] MEDS ORDERED: NOVAPLUS SOLU-M40 MG IV (13:41)
[2016-02-25] MEDS ORDERED: FUROSEMIDE10 MG/ML IV (13:41)
[2016-02-25] MEDS ORDERED: DOBUTAMINE250 MG/250 IV (13:41)
[2016-02-25 15:09] LABS: ABG CO2 CONTENT 32.4 mmol/L (23-27); ABG HCO3 31.2 mmol/l (22-26); ABG TEMPERATURE 97.4 F (98.0-99.0); ARTERIAL BLOOD GAS PH 7.535 (7.35-7.45)
[2016-04-01] MEDS ORDERED: LATU20TA PO (04:59)
[2016-04-05] MEDS ORDERED: ACETAZOLAMIDE250 MG PEG (01:28)
[2016-04-05] MEDS ORDERED: WARFARIN SOD5 MG PEG (01:45)
[2016-04-05] MEDS ORDERED: DILTIAZEM60 MG PEG (01:46)
[2016-04-05] MEDS ORDERED: LASIX40 MG PEG (01:48)
[2016-04-05] MEDS ORDERED: ADULT TUSS100 MG/5 M PEG (01:50)
[2016-04-05] MEDS ORDERED: LATU20TA PEG (01:51)
[2016-04-05] MEDS ORDERED: KEPPRA100 MG/ML PEG (01:53)
[2016-04-05] MEDS ORDERED: LOPRESSOR50 M1 PEG (02:35)
[2016-04-05] MEDS ORDERED: LATU60TA PEG ×2 (02:35→05:02)
[2016-04-05] MEDS ORDERED: NYSTATIN CREAM15 GM T (02:36)
[2016-04-05] MEDS ORDERED: PHOS-NAK1 PDR PEG (02:37)
[2016-04-05] MEDS ORDERED: KLORVESS,K40 MEQ/30 PEG (02:38)
[2016-04-05] MEDS ORDERED: OMEPRAZOLE40 MG PEG (02:40)
[2016-04-05] MEDS ORDERED: Synthroid,Lev200 MCG PEG (02:41)
[2016-04-05] MEDS ORDERED: LATU40TA PO (05:00)
[2016-04-05] MEDS ORDERED: VITAMIN D31000 IU PEG (05:05)
== END 2016-02-25 15:30 | DRG 870 ==
LOC: ED 03:11 → EDHOLD 07:00 → ICCU 07:00 → EDHOLD 07:57 → ICCU 10:58
PROVIDERS: Emergency Medicine Emergency Medical Services; Internal Medicine; Internal Medicine Critical Care Medicine; Student in an Organized Health Care Education/Training Program
PROC: 0BH17EZ Insertion of Endotracheal Airway into Trachea, Via Natural or Artificial Opening (ICD-10-PCS; principal; 2016-02-18)
PROC: 5A1955Z Respiratory Ventilation, Greater than 96 Consecutive Hours (ICD-10-PCS; principal; 2016-02-18)
PROC: 5A09357 Assistance with Respiratory Ventilation, Less than 24 Consecutive Hours, Continuous Positive Airway Pressure (ICD-10-PCS; 2016-02-18)
PROC: B548ZZA Ultrasonography of Superior Vena Cava, Guidance (ICD-10-PCS; 2016-02-19)
PROC: 02HV33Z Insertion of Infusion Device into Superior Vena Cava, Percutaneous Approach (ICD-10-PCS; 2016-02-19)
DX: A41.9 Sepsis, unspecified organism (principal); J96.21 Acute and chronic respiratory failure with hypoxia; J18.9 Pneumonia, unspecified organism; I50.33 Acute on chronic diastolic (congestive) heart failure; E44.0 Moderate protein-calorie malnutrition; J96.12 Chronic respiratory failure with hypercapnia; J44.0 Chronic obstructive pulmonary disease with (acute) lower respiratory infection; E87.0 Hyperosmolality and hypernatremia; I11.0 Hypertensive heart disease with heart failure; N30.01 Acute cystitis with hematuria; K51.919 Ulcerative colitis, unspecified with unspecified complications; R65.20 Severe sepsis without septic shock; D32.9 Benign neoplasm of meninges, unspecified; E55.9 Vitamin D deficiency, unspecified; E89.0 Postprocedural hypothyroidism; R00.1 Bradycardia, unspecified; K21.9 Gastro-esophageal reflux disease without esophagitis; I34.1 Nonrheumatic mitral (valve) prolapse; F42.9 Obsessive-compulsive disorder, unspecified; F41.9 Anxiety disorder, unspecified; F03.90 Unspecified dementia, unspecified severity, without behavioral disturbance, psychotic disturbance, mood disturbance, and anxiety; I27.2 Other secondary pulmonary hypertension; G40.909 Epilepsy, unspecified, not intractable, without status epilepticus; T50.2X5A Adverse effect of carbonic-anhydrase inhibitors, benzothiadiazides and other diuretics, initial encounter; D63.8 Anemia in other chronic diseases classified elsewhere; E87.6 Hypokalemia; E66.01 Morbid (severe) obesity due to excess calories; Z82.49 Family history of ischemic heart disease and other diseases of the circulatory system; Z88.1 Allergy status to other antibiotic agents; Z86.718 Personal history of other venous thrombosis and embolism; Z91.041 Radiographic dye allergy status; Z88.6 Allergy status to analgesic agent; Z79.899 Other long term (current) drug therapy; Z88.2 Allergy status to sulfonamides; Z68.37 Body mass index [BMI] 37.0-37.9, adult; Z98.890 Other specified postprocedural states; Z93.1 Gastrostomy status